=== PATIENT | female | born 1955 | race Caucasian/White ===

== ENCOUNTER 2016-05-08 13:09 | Emergency (ER) | payer MEDICARE, OTHER ==
[2016-05-08 13:36] VITALS: TEMP 98; BMI 26.2
[2016-05-08] MEDS ORDERED: OXYCODONE HCL 5 MG TABLET PO ONE (13:51)
[2016-05-08] MEDS ORDERED: CYCLOBENZAPRINE 10 MG TAB PO ONE (13:51)
--- NOTE | 2016-05-08 13:55 | EDPRACDOC ---
- General Chief Complaint: Fall Stated Complaint: FELL INJURED LT BACK,SHOULDER,HIP & LT LEG & NECK Time Seen by Provider: 05/08/16 13:43 Information Source: Patient - History of Present Illness Onset: TODAY HPI: PT STATES SHE NORMALLY HAS PROBLEMS GETTING UP FROM SITTING POSITION AND TODAY WAS ON TOILET AND NORMALLY USES THE [employer] DOOR HANDLES TO HELP HER UP AND WHEN SHE WAS GETTING UP HER FEET SLIPPED OUT FROM UNDER HER AND SHE FELL LANDING ON HER LEFT BUTTOCKS THE DOOR SWUNG AND THREW HER INTO ANOTHER DOOR. PT C/O LEFT SHOULDER NECK LEFT HIP PELVIS AND LOWER BACK PAIN AND LEFT KNEE PAIN. Pain Severity: Reports: Moderate Injuries/Pain Location: Reports: upper extremity, lower extremity Reason for Fall: Reports: slipped Modifying Factors: improves with: movement Associated Symptoms (Fall): Reports: trouble walking Allergies/Adverse Reactions: Allergies adhesive tape Allergy (Severe, Verified 05/08/16 13:37) BLISTERS Iodinated Contrast Media - IV Dye Allergy (Severe, Verified 05/08/16 13:37) Difficulty Breathing codeine [Codeine] Allergy (Mild, Verified 05/08/16 13:37) Nausea/Vomiting "MAKES ME VIOLENTLY ILL" bupropion [From Wellbutrin] Allergy (Verified 05/08/16 13:37) Unknown morphine Allergy (Verified 05/08/16 13:37) Itching ANTI-INFLAMMATORY Allergy (Mild, Uncoded 05/08/16 13:37) Unknown/See Comments ELEVATED LIVER ENZYMES Home Medications: Ambulatory Orders Esomeprazole Mag Trihydrate [Nexium] 40 mg PO DAILY 07/26/12 Furosemide [Lasix] 40 mg PO DAILY 07/26/12 Gabapentin [Neurontin] 300 mg PO TID 07/26/12 Levothyroxine [Synthroid, Levoxyl] 125 mcg PO DAILY 07/26/12 Acetazolamide [Diamox Sequels] 1,000 mg PO BID 01/25/14 MetFORMIN (Immediate Release) [GLUCOPHAGE Immed Release] 1,000 mg PO BID(STEPAN) Topiramate [Topamax] 200 mg PO BID 01/25/14 Rifaximin [Xifaxan] 550 mg PO BID #60 tablet 06/13/14 Spironolactone [Aldactone] 50 mg PO BID 01/19/15 Zinc Sulfate 220 mg PO BID 07/15/15 Cyanocobalamin (Vitamin B-12) [B-12] 1,000 mcg PO DAILY 11/03/15 Vitamin E 1,000 unit PO DAILY 11/03/15 Cyclobenzaprine HCl [Flexeril] 10 mg PO TID #20 tablet 05/08/16 Nitroglycerin [Nitrostat] 0.4 mg SL Q5MX3 PRN 05/08/16 Ondansetron [Zofran Odt] 8 mg PO Q8H PRN 05/08/16 Oxycodone Immediate Release [Oxycodone Immediate Release (OxyIR)] 5 mg PO Q4H PRN #15 tab 05/08/16 Ursodiol 300 mg PO BID 05/08/16 ED Past Medical History - History Reviewed Yes Nurses notes reviewed and agree except as marked Travel Outside of [place] in the Last 3 Months?: No - Patient Medical History Neurological History: Reports: Cerebrovascular Accident, Metabolic encephalopathy Cardiac History: Reports: Coronary Artery Disease, Atrial Fibrillation, Hypertension, Heart Attack (2004), Cardiac Catheterization (2011), Hypercholesterolemia, Valvular Heart Disease Respiratory History: Reports: Asthma, COPD, Pulmonary Embolism (2007) GI/ History: Reports: Urinary Tract Infection, Kidney Stones, Liver Failure ( CIRRHOSIS from MEDICATIONS. dx 2013.), Gastroesophageal Reflux, Diverticulosis Musculoskeletal History: Reports: Arthritis, Gout, Osteoarthritis Psychological History: Reports: Depression, Anxiety. Denies: Substance Use Disorder Systemic History: Reports: Anemia, Diabetes, Hyperthyroidism, Hypothyroidism. Denies: Cancer Additional Past Medical History: THROMBOCYTOPENIA Surgical History: Reports: Cholecystectomy (LAP), Angioplasty, Cardiac Catheterization (2011), Hernia Surgery (LOWER ABD), Other (knee). Denies: Hysterectomy - Family Medical History Reports: Hypertension (Grandmother), Cancer (MOTHER-COLON, ESOPHGEAL-BROTHER, LUNG-GRANDFATHER) - Social Medical History Smoking Status: Current some day smoker Social History: Denies: Substance Use Disorder ETOH: None Substance Abuse: None Lives With: Other Lives In: Home EDM Review of Systems - Review of Systems ROS Negative Except as Marked: Yes All systems reviewed and were negative except as marked Constitutional: No Symptoms Reported. negative: Fever, Chills, Weakness, Fatigue, Loss of Appetite Eyes: No Symptoms Reported. negative: Redness, Blurred Vision, Double Vision, Discharge, Pain, Light Sensitive, Photophobia Ears: No Symptoms Reported. negative: Pain, Hearing Loss, Drainage, Ear Pulling Throat: No Symptoms Reported. negative: Pain, Swelling Nose: No Symptoms Reported. negative: Congestion, Bleeding, Discharge, Injection, Swelling, Deformity, Ecchymosis, Tender, Abrasion, Laceration Mouth: No Symptoms Reported. negative: Pain, Drooling Respiratory: No Symptoms Reported. negative: Cough, Brassy Cough, Barky Cough, Shortness of Breath, Wheezing, Hemoptysis Cardiovascular: No Symptoms Reported. negative: Chest Pain, Palpitations, Syncope, Edema, Orthopnea, PND, Skin Mottling, Cyanosis Gastrointestinal: No Symptoms Reported. negative: Pain, Constipation, Nausea, Vomiting, Diarrhea, Melena, Formula Intolerance Genitourinary: No Symptoms Reported. negative: Dysuria, Hematuria, Frequency, Discharge, Bleeding, Testicular Pain, Neurological: No Symptoms Reported. negative: Headache, Dizziness, Seizure, Numbness, Weakness, Speech Difficulty, Gait Difficulty Musculoskeletal: Back, Knee, Neck (LEFT), Pelvis (LT), Shoulder (LT). negative : Arm, Ankle, Chestwall, Elbow, Forearm, Femur, Foot, Hand, Hip, Leg, Ribs, Wrist Integumentary: Other (BRUISING TO LEFT KNEE). negative: Bruising, Itching, Rash , Wound Allergic/Immunologic: No Symptoms Reported. negative: Hives, Itching Hematologic: No Symptoms Reported. negative: Lymphadenopathy, Easy Bruising, Easy Bleeding Endocrine: No Symptoms Reported. negative: Weight Gain, Weight Loss Psychiatric: No Symptoms Reported. negative: Anxiety, Depression, Hallucinations, Insomnia, Suicidal - Physical Exam Constitutional: No apparent distress, Alert (Awake) Oriented to: Time, Person, Place Last recorded Vital Signs: Last Vital Signs Temp 98.0 F 05/08/16 13:33 Pulse 74 05/08/16 13:33 Resp 18 05/08/16 13:33 BP 131/61 05/08/16 13:33 Pulse Ox 97 05/08/16 13:33 Oxygen Pulse Oxygen Saturation 97 O2 Device Room Air Oxygen Flow Rate Fraction of Inspired Oxygen ( FIO2) - HEENT Head: Normal ( normocephalic) Eye Exam: Normal (PERRL, EOMI, Sclera white) Oropharynx: Normal (Pharynx:Moist without exudate,Gums-no swelling) Tympanic Membrane: Normal ENT EAC: Normal TMJ: Normal Nose: No Symptoms Reported (septum midline) Neck: Normal (FROM, trachea at midline) - Respiratory/Cardiovascular Respiratory: Normal - CTA (BBS clear to auscultation without adventitious sounds ) Cardiovascular: Normal (RRR without murmur, gallop or rub) - GI Auscultation: Normal (NABS) Palpation: Normal (Soft,No rebound or guarding, non distended) Tenderness: Non tender Muller's Sign: Negative - Bladder: Normal - Musculoskeletal Back: Normal (Non-Tender) Extremities: Other (LEFT SHOULDER NECK HIP LOW BACK AND LEFT KNEE) - Integumentary Skin: Normal, Warm, Dry Lymphatics: Normal (no adenopathy) - Neurologic Memory Impaired: Normal Motor Function: Normal (Normal tone, Pulses 2+ No cyanosis or edema, FROM) Cranial Nerve: Normal (CN II-X11 intact sensation, strength 5/5) Cerebellar: Normal Mood Description: Normal Perception: Normal ED Injury/Fall Exam - Physical Exam Head Injury: no evidence of injury Extremity Exam: no evidence of injury, normal range of motion, non-tender, no pedal edema, pain with movement (LEFT SHOULDER, ) Skin: Normal, Warm, Dry - Goodrich Coma Score Best Eye Response (Contreras): (4) open spontaneously Best Verbal Response (Goodrich): (5) oriented Best Motor Response (Contreras): (6) obeys commands Contreras Total: 15 - Differential Diagnosis Abrasion, Contusion, Fall, Fracture, Sprain, Strain - Diagnostic Imaging KNEE Image interpreted by: Radiologist NEGATIVE SHOULDER Image interpreted by: Radiologist NEGATIVE CERVICAL Image interpreted by: Radiologist NEGATIVE PELVIS Image interpreted by: Radiologist NEGATIVE LSPINE Image interpreted by: Radiologist CHRONIC COMPRESSION FRACTURE, OTHERWISE NEGATIVE Decision Time to Discharge: 15:47 - Departure Disposition: Home Condition: Stable Final Diagnosis: MECHANICAL FALL Shoulder strain Qualifiers: Encounter type: initial encounter Laterality: left Qualified Code(s): S46.912A - Strain of unspecified muscle, fascia and tendon at shoulder and upper arm level, left arm, initial encounter Contusion Qualifiers: Encounter type: initial encounter Contusion area: knee Laterality: left Qualified Code(s): S80.02XA - Contusion of left knee, initial encounter Instructions: RICE Therapy (ED) Education/Counseling Given To: Patient Education/Counseling Given Regarding: Diagnosis, Treatment, Prognosis, Follow Up Referrals: Tr Kathleen MD [Primary Care Provider] - One Week Prescriptions: New Cyclobenzaprine HCl [Flexeril] 10 mg PO TID #20 tablet Oxycodone Immediate Release [Oxycodone Immediate Release (OxyIR)] 5 mg PO Q4H PRN #15 tab PRN Reason: Pain No Action Furosemide [Lasix] 40 mg PO DAILY Levothyroxine [Synthroid, Levoxyl] 125 mcg PO DAILY Esomeprazole Mag Trihydrate [Nexium] 40 mg PO DAILY Gabapentin [Neurontin] 300 mg PO TID Acetazolamide [Diamox Sequels] 1,000 mg PO BID MetFORMIN (Immediate Release) [GLUCOPHAGE Immed Release] 1,000 mg PO BID(STEPAN) Topiramate [Topamax] 200 mg PO BID Rifaximin [Xifaxan] 550 mg PO BID #60 tablet Spironolactone [Aldactone] 50 mg PO BID Zinc Sulfate 220 mg PO BID Cyanocobalamin (Vitamin B-12) [B-12] 1,000 mcg PO DAILY Vitamin E 1,000 unit PO DAILY Ondansetron [Zofran Odt] 8 mg PO Q8H PRN PRN Reason: Nausea Nitroglycerin [Nitrostat] 0.4 mg SL Q5MX3 PRN PRN Reason: Chest Pain Or Discomfort Ursodiol 300 mg PO BID
--- NOTE | 2016-05-08 15:22 | DIRPT ---
CLINICAL DATA: Neck pain after fall off toilet today. EXAM: CERVICAL SPINE - COMPLETE 4+ VIEW COMPARISON: None. FINDINGS: No fracture or spondylolisthesis is noted. Anterior osteophyte formation is noted at C3-4, C4-5 and C5-6. Disc spaces appear to be intact. IMPRESSION: Mild degenerative changes as described above. No acute abnormality seen in the cervical spine. Electronically Signed By: Farhat Camejo Jr, M.D. On: 05/08/2016 15:19
--- NOTE | 2016-05-08 15:24 | DIRPT ---
CLINICAL DATA: Pelvic pain after fall off toilet today. EXAM: PELVIS - 1-2 VIEW COMPARISON: May 16, 2015. FINDINGS: There is no evidence of pelvic fracture or diastasis. No pelvic bone lesions are seen. Status post surgical internal fixation of old right femoral fracture. Left hip joint appears normal. IMPRESSION: No acute abnormality seen in the pelvis. Electronically Signed By: Farhat Camejo Jr, M.D. On: 05/08/2016 15:21
--- NOTE | 2016-05-08 15:24 | DIRPT ---
CLINICAL DATA: PT FELL OFF TOILET TODAY, PAIN ALL OVER. EXAM: LUMBAR SPINE - COMPLETE 4+ VIEW COMPARISON: CT 01/17/2016 FINDINGS: Lateral projection demonstrates compression deformity of the superior endplate of L3 vertebral body and L1 vertebral body which are not changed significantly from comparison CT. There is multilevel anterior osteophytosis through the lumbar spine. No subluxation or retropulsion. Atherosclerotic calcification of the abdominal aorta. IMPRESSION: 1. No acute findings lumbar spine. 2. Chronic compression deformities at L1 and L3. Electronically Signed By: Franklin Lawson M.D. On: 05/08/2016 15:21
--- NOTE | 2016-05-08 15:27 | DIRPT ---
CLINICAL DATA: PT FELL OFF TOILET TODAY, PAIN ALL OVER EXAM: LEFT SHOULDER - 2+ VIEW COMPARISON: 03/05/2016 FINDINGS: Glenohumeral joint is intact. No evidence of scapular fracture or humeral fracture. The acromioclavicular joint is intact. IMPRESSION: No fracture or dislocation. Electronically Signed By: Franklin Lawson M.D. On: 05/08/2016 15:24
--- NOTE | 2016-05-08 15:33 | DIRPT ---
CLINICAL DATA: Fall. Pain. The patient fell off the toilet today. Pain all over. EXAM: LEFT KNEE - COMPLETE 4+ VIEW COMPARISON: 03/25/2010 FINDINGS: There are degenerative changes involving the medial, lateral, and patellofemoral compartments. No joint effusion or acute fracture, subluxation. No radiopaque foreign body or soft tissue gas. IMPRESSION: No evidence for acute abnormality. Tricompartmental degenerative changes. Electronically Signed By: Ingrid Zimmerman M.D. On: 05/08/2016 15:30
[2016-05-08 16:55] VITALS: BP 117/53; PULSE 65
== END 2016-05-08 16:40 | disposition home or self-care (01) ==
LOC: ED 13:09
DX: S46.912A Strain of unspecified muscle, fascia and tendon at shoulder and upper arm level, left arm, initial encounter (principal); S80.02XA Contusion of left knee, initial encounter; W01.0XXA Fall on same level from slipping, tripping and stumbling without subsequent striking against object, initial encounter; Y93.89 Activity, other specified
CPT/HCPCS: 36415; 72050; 72110; 72170; 73030; 73564; 82140; 99284; A9270; J3490